=== PATIENT | female | born 1985 | race Caucasian/White ===

== ENCOUNTER 2022-04-03 23:01 | Emergency (ER) | payer BC, SELFPAY ==
[2022-04-03 23:24] VITALS: BP 135/74; PULSE 94; RESP 18; TEMP 37.2; O2SAT 98; BMI 43.1
[2022-04-03 23:34] VITALS: O2SAT 98
--- NOTE | 2022-04-04 | CRLHL7_ITS ---
For Patients: As a result of the Century Cures Act, medical imaging exams and procedure reports are released immediately into your electronic medical record. You may view this report before your referring provider. If you have questions, please contact your health care provider. DATE: 04/04/2022 CLINICAL HISTORY: Patient with neck swelling. TECHNIQUE: Standard helical CT image acquisition of the neck up to the skull base after bolus intravenous contrast enhancement. Multiplanar reconstructed images performed on a separate workstation. COMPARISON: None. FINDINGS: There is symmetric severe enlargement of bilateral palatine tonsils with a striated appearance but not fluid collection. There are bilateral jugular lymph nodes measuring up to 1.4 cm. There is mild adenoidal hypertrophy and mucosal edema along the soft palate. here is no evidence of abscess in the neck. The airway is patent. The visualized intracranial contents are unremarkable. The visualized lung apices are unremarkable. The thyroid gland is unremarkable. The cervical spine is unremarkable. IMPRESSION: 1. Symmetric severe enlargement of bilateral palatine tonsils with a striated appearance but not fluid collection is most likely due to phlegmonous material without drainable abscess. Close clinical follow-up is recommended to exclude subsequent development of tonsillar abscess. 2. Mild adenoidal hypertrophy and mucosal edema along the soft palate is consistent with pharyngitis. 3. Reactive cervical lymphadenopathy. Please note that all CT scans at this facility use dose modulation, iterative reconstruction, and/or weight-based dosing when appropriate to reduce radiation dose to as low as reasonably achievable. Dictated by Bautista Tyson MD @ 04/04/2022 5:52:44 AM (Electronically Signed)
--- NOTE | 2022-04-04 00:12 | ED.GENADULT ---
HPI - General Adult General Chief complaint: Sore Throat Stated complaint: Fever, Sore Throat Time Seen by Provider: 04/03/22 23:29 History of Present Illness HPI narrative: Pt is a 36 year old woman who presents with pharyngitis. Pt was diagnoses yesterday with strep throat via video visit and started on amoxicllin. Pt states that she is having a persistent fever as well as severe pharyntitis. No cough, rash, chest pain, nausea vomiting. No difficulty breathing. Pain is severe and sharp. No stiff neck or headache. Pt taking tylenol and motrin at home without relief. Related Data Home Medications Medication Instructions Recorded Confirmed amoxicillin 500 mg tablet 500 mg PO DAILY 04/03/22 04/03/22 venlafaxine 37.5 mg 37.5 mg PO DAILY 04/03/22 04/03/22 capsule,extended release 24 hr (Effexor XR) Allergies Allergy/AdvReac Type Severity Reaction Status Date / Time No Known Drug Allergies Allergy Verified 04/04/22 00:12 Review of Systems Status of ROS: Reports: 10 or more systems reviewed and unremarkable except as noted in History and below [facility] Medical History (Updated 04/04/22 @ 00:58 by Rico Dudley MD) No significant past medical history Surgical History (Updated 04/04/22 @ 00:29 by Rainer Pierce RN) No significant past surgical history Social History Smoking Status: Never smoker Do you use any of these nicotine containing products: None Second hand tobacco smoke exposure: No How often do you have a drink containing alcohol: never How often do you have six or more drinks on one occasion: Never AUDIT-C Alcohol total score: 0 Non-prescribed substance use: denies use Exam Narrative: Exam Narrative: EXAM GENERAL: Patient appears comfortable and well. EYES: No scleral icterus. ENT: Tympanic membranes normal with significant tonsillar enlargement with exudate. Significant anterior cervical lymphadenopathy noted. THYROID: no thyroid nodules or thyromegaly. LYMPH: No supraclavicular or cervical lymphadenopathy. SKIN: Visible skin seen during exam normal or with benign process only. EXT: No dependent lower extremity pedal edema. HEART: Regular rate and rhythm with no murmurs, rubs, or gallops. LUNGS: Clear to auscultation bilaterally with no crackles or wheezes. ABD: Soft, non tender, non distended. PSYCH: Good eye contact, speech is not pressured. Const: Vital Signs, click to edit/add: Vital Signs - 24 hr 04/03/22 23:24 04/03/22 23:34 04/04/22 00:31 Temperature 98.9 F 98.4 F Pulse Rate [Right Pulse Oximeter] 94 89 Respiratory Rate 18 18 Blood Pressure [Ri ght Upper Arm] 135/74 124/78 Pulse Oximetry 98 98 98 Oxygen Delivery Me thod Room Air Room Air Course Course Hospital Course: CT of the neck soft tissue ordered. Reevaluation(s) Reevaluation #1: No signs of peritonsillar abscess on CT upon my and radiology review. Potential to develop abscess later noted. Time: 00:55 Vital Signs Vital signs: Initial Vital Signs Temperature 98.9 F 04/03/22 23:24 Temperature Source Oral 04/03/22 23:24 Pulse Rate 94 04/03/22 23:24 Respiratory Rate 18 04/03/22 23:24 Blood Pressure 135/74 04/03/22 23:24 Blood Pressure Mean 94 04/03/22 23:24 Blood Pressure Position Sitting 04/03/22 23:24 Pulse Oximetry 98 04/03/22 23:24 Oxygen Delivery Method 04/03/22 23:24 Vital Signs Temperature 98.9 F 04/03/22 23:24 Pulse Rate 94 04/03/22 23:24 Respiratory Rate 18 04/03/22 23:24 Blood Pressure 135/74 04/03/22 23:24 Pulse Oximetry 98 04/03/22 23:24 Oxygen Delivery Method 04/03/22 23:24 Temperature 98.4 F 04/04/22 00:31 Pulse Rate 89 04/04/22 00:31 Respiratory Rate 18 04/04/22 00:31 Blood Pressure 124/78 04/04/22 00:31 Pulse Oximetry 98 04/04/22 00:31 Oxygen Delivery Method 04/04/22 00:31 Medical Decision Making [facility] Narrative Medical decision making narrative: Pt previously diagnosed with strep throat presents with worsening pharyngitis. Pt has negative CT scan of neck soft tissue. Pt has normal vital signs and otherwise normal exam. Will finish amoxicillin and add prednisone to regiment. Differential Diagnosis Differential Diagnosis: Strep throat, viral pharyngitis, peritonsilar abscess, foreign body. Discharge Plan Discharge Clinical Impression: Strep throat Condition: Stable Instructions: Strep Throat (ED) Additional Instructions: Continue amoxicillin Prednisone for 5 days as directed Follow up with your doctor as needed Activity Level: No Restrictions Discharge Diet: Regular Prescriptions: No Action amoxicillin 500 mg tablet 500 mg PO DAILY venlafaxine [Effexor XR] 37.5 mg capsule,extended release 24hr 37.5 mg PO DAILY Follow Up/Referrals: Sloane Hart MD [Primary Care Provider] - Stand Alone Forms: Notary[employer] Info Instructions
[2022-04-04 00:31] VITALS: BP 124/78; PULSE 89; RESP 18; TEMP 36.9; O2SAT 98
[2022-04-04 01:00] VITALS: BP 124/78; PULSE 89; RESP 18; TEMP 36.9
== END 2022-04-04 01:00 | disposition home or self-care (01) ==
PROVIDERS: Emergency Provider Internal Medicine; PCP Family Medicine
DX: J02.0 Streptococcal pharyngitis (principal)
CPT/HCPCS: 70491; 94761; 99283; 99284; Q9967